=== PATIENT | female | born 1985 | race Asian ===

== ENCOUNTER 2020-07-04 04:57 | Emergency (ER) | payer BC, OTHER ==
[2020-07-04 05:13] VITALS: BMI 25.0
[2020-07-04] MEDS ORDERED: FAMOTIDINE 20 MG/50 ML IVPB 20 MG/50 ML MG IVPB ONE ×2 (05:47→06:09)
[2020-07-04] MEDS ORDERED: ONDANSETRON 4 MG/2 ML VIAL IVPUSH ONE (05:48)
[2020-07-04] MEDS ORDERED: MAG HYDROX/AL HYDROX/SIMETH 30 ML UNIT-DOSE CUP PO ONE (05:48)
[2020-07-04] MEDS ORDERED: SODIUM CHLORIDE 0.9% 1000 ML INFUS.BAG IV ONE (05:49)
[2020-07-04] MEDS ORDERED: ONDANSETRON 4 MG/2 ML VIAL ONE (06:09)
[2020-07-04] MEDS ORDERED: MAG HYDROX/AL HYDROX/SIMETH 30 ML UNIT-DOSE CUP ONE (06:09)
[2020-07-04 06:26] LABS: BASO % 0.2 % (0-2.0); HEMATOCRIT 32.3 % (32.4-45.2); HEMOGLOBIN 11.2 GM/dL (10.7-15.3); MCH 28.9 pg (25.7-33.7); MCHC 34.5 g/dl (32.0-36.0); MEAN CELL VOLUME 83.8 fl (80-96); MEAN PLT VOLUME 9.1 fl (7.5-11.1); MONO % 3.6 % (3.8-10.2); NEUT % 78.2 % (42.8-82.8); PLATELET COUNT 177 K/MM3 (134-434); RBC 3.86 M/mm3 (3.60-5.2); RDW 16.1 % (11.6-15.6); WHITE BLOOD COUNT 4.3 K/mm3 (4.0-10.0)
[2020-07-04 07:10] LABS: POTASSIUM 3.5 mmol/L (3.5-5.1)
[2020-07-04 07:12] LABS: ALBUMIN 2.6 g/dl (3.4-5.0); CALCIUM 8.2 mg/dL (8.5-10.1)
[2020-07-04 07:13] LABS: BLOOD UREA NITROGEN 5.4 mg/dL (7-18)
[2020-07-04 07:16] LABS: CREATININE 0.5 mg/dL (0.55-1.3)
[2020-07-04 07:17] LABS: BILIRUBIN,TOTAL 0.4 mg/dL (0.2-1); TOT PROT 6.1 g/dl (6.4-8.2)
[2020-07-04 08:05] LABS: EPI CELLS >36 /uL (0-25.1); HYALINE CASTS 7 /uL (0-3.1); PH,URINE 6.5 (5.0-8.0); URINE APPEARANCE CLEAR; URINE BACTERIA 372 /uL (0-1359); URINE BILIRUBIN NEGATIVE (NEGATIVE); URINE COLOR DK YELLOW; URINE GLUCOSE (UA) NEGATIVE (NEGATIVE); URINE KETONE 4+ (NEGATIVE); URINE LEUK ESTERASE NEGATIVE (NEGATIVE); URINE NITRITE NEGATIVE (NEGATIVE); URINE PROTEIN TRACE (NEGATIVE); URINE RBC 4 /uL (0-23.9); URINE WBC 21 /uL (0-25.8)
[2020-07-04] MEDS ORDERED: DEXTROSE 5%-LACTATED RINGERS 1,000 ML IV ONE (08:12)
[2020-07-04 11:09] VITALS: BP 95/58; PULSE 98; TEMP 98.5
== END 2020-07-04 11:20 | disposition home or self-care (01) ==
LOC: JER 04:57
PROC: 3E033GC Introduction of Other Therapeutic Substance into Peripheral Vein, Percutaneous Approach (ICD-10-PCS; principal; 2020-07-04)
PROC: 3E033GC Introduction of Other Therapeutic Substance into Peripheral Vein, Percutaneous Approach (ICD-10-PCS; 2020-07-04)
PROC: 3E033GC Introduction of Other Therapeutic Substance into Peripheral Vein, Percutaneous Approach (ICD-10-PCS; 2020-07-04)
DX: R11.2 Nausea with vomiting, unspecified (principal); U07.1 COVID-19
CPT/HCPCS: 36415; 71045-TC-FY; 80053; 81003; 85025; 87086; 93005; 93010; 99284-25

== ENCOUNTER 2020-07-05 13:39 | Emergency (ER) | payer OTHER ==
[2020-07-05 14:04] VITALS: TEMP 98.4; BMI 24.9
[2020-07-05 15:24] LABS: BASO % 0.3 % (0-2.0); HEMATOCRIT 33.3 % (32.4-45.2); HEMOGLOBIN 11.1 GM/dL (10.7-15.3); LYMPH % 13.9 % (8-40); MCH 28.5 pg (25.7-33.7); MCHC 33.2 g/dl (32.0-36.0); MEAN CELL VOLUME 85.8 fl (80-96); MEAN PLT VOLUME 9.2 fl (7.5-11.1); MONO % 3.6 % (3.8-10.2); NEUT % 82.2 % (42.8-82.8); PLATELET COUNT 175 K/MM3 (134-434); RBC 3.88 M/mm3 (3.60-5.2); RDW 16.6 % (11.6-15.6); WHITE BLOOD COUNT 4.8 K/mm3 (4.0-10.0)
[2020-07-05 15:40] LABS: CHLORIDE 106 mmol/L (98-107); POTASSIUM 3.9 mmol/L (3.5-5.1); SODIUM 137 mmol/L (136-145)
[2020-07-05 15:42] LABS: ALBUMIN 2.4 g/dl (3.4-5.0); ANION GAP 9 MMOL/L (8-16); BLOOD UREA NITROGEN 3.4 mg/dL (7-18); CALCIUM 8.1 mg/dL (8.5-10.1); CO2 23 mmol/L (21-32); GLUCOSE,RANDOM 98 mg/dL (74-106)
[2020-07-05 15:46] LABS: CREATININE 0.5 mg/dL (0.55-1.3); SGOT/AST 86 U/L (15-37); SGPT/ALT 82 U/L (13-61)
[2020-07-05 15:48] LABS: BILIRUBIN,TOTAL 0.4 mg/dL (0.2-1); TOT PROT 6.1 g/dl (6.4-8.2)
[2020-07-05 15:49] LABS: ALK PHOS 68 U/L (45-117)
[2020-07-05] MEDS ORDERED: predniSONE 20 MG TABLET (UD) PO ONE (18:44)
[2020-07-05] MEDS ORDERED: predniSONE 20 MG TABLET (UD) ONE (19:11)
[2020-07-05 19:32] LABS: PH,URINE 6.5 (5.0-8.0); URINE APPEARANCE CLEAR; URINE BILIRUBIN NEGATIVE (NEGATIVE); URINE COLOR YELLOW; URINE GLUCOSE (UA) NEGATIVE (NEGATIVE); URINE KETONE 4+ (NEGATIVE); URINE LEUK ESTERASE NEGATIVE (NEGATIVE); URINE NITRITE NEGATIVE (NEGATIVE); URINE PROTEIN NEGATIVE (NEGATIVE)
[2020-07-05 19:43] VITALS: BP 118/65; PULSE 100
== END 2020-07-05 19:42 | disposition home or self-care (01) ==
LOC: JER 13:39
DX: U07.1 COVID-19 (principal); Z3A.17 17 weeks gestation of pregnancy
CPT/HCPCS: 36415; 80053; 81003; 82550; 82728; 84484; 85025; 85379; 85384; 86140; 87804; 99284-25; C9803; U0003

== ENCOUNTER 2020-12-03 11:12 | Inpatient (IN) | payer OTHER ==
[2020-12-03] MEDS: ELECTROLYTE-148 SOLN 1,000 ML IV SCH ×3 (12:00→23:15)
[2020-12-03 12:25] LABS: BASO % 0.2 % (0-2.0); EOS % 0.7 % (0-4.5); HEMATOCRIT 37.2 % (32.4-45.2); HEMOGLOBIN 12.6 GM/dL (10.7-15.3); LYMPH % 20.7 % (8-40); MCH 29.7 pg (25.7-33.7); MCHC 33.8 g/dl (32.0-36.0); MEAN PLT VOLUME 9.1 fl (7.5-11.1); MONO % 6.3 % (3.8-10.2); NEUT % 72.1 % (42.8-82.8); PLATELET COUNT 226 10^3/uL (134-434); RBC 4.23 M/mm3 (3.60-5.2); RDW 14.9 % (11.6-15.6); WHITE BLOOD COUNT 8.8 K/mm3 (4.0-10.0)
[2020-12-03 12:32] LABS: INR 0.86 (0.83-1.09); PROTHROMBIN TIME (PATIENT) 10.4 SEC (9.7-13.0)
[2020-12-03 12:34] LABS: ACTIVATED PTT 24.4 SECONDS (25.2-36.5)
[2020-12-03 12:45] VITALS: BMI 29.2
[2020-12-03 12:46] LABS: BLOOD UREA NITROGEN 10.2 mg/dL (7-18); CALCIUM 8.8 mg/dL (8.5-10.1)
[2020-12-03 12:49] LABS: CREATININE 0.4 mg/dL (0.55-1.3)
[2020-12-03] MEDS ORDERED: DINOPROSTONE 10 MG VAGINAL SUPPOSITORY VG ONE (14:24)
[2020-12-03] MEDS ORDERED: PROMETHAZINE HCL 25 MG/1 ML VIAL IVPUSH ONE (14:34)
[2020-12-03] MEDS ORDERED: BUTORPHANOL TARTRATE 1 MG/ML VIAL IVPB PRN (14:34)
[2020-12-04] MEDS ORDERED: OXYTOCIN 30 UNITS in 0.9% NS 30 UNIT/500 ML INFUS.BAG IVPB SCH (01:30)
[2020-12-04] MEDS ORDERED: OXYTOCIN 30 UNITS in 0.9% NS 30 UNIT/500 ML INFUS.BAG IVPB ONE (03:01)
[2020-12-04] MEDS ORDERED: PCA PUMP NR ONE (07:47)
[2020-12-04] MEDS ORDERED: FENTANYL/BUPIVACAINE/NS/PF - PCEA - 50 ML DISP.SYRIN EP ONE (07:47)
[2020-12-04] MEDS: ELECTROLYTE-148 SOLN 1,000 ML IV SCH ×2 (08:25→15:47)
[2020-12-04] MEDS ORDERED: NALOXONE HCL 0.4 MG/ML VIAL IVPUSH PRN (08:25)
[2020-12-04] MEDS ORDERED: FENTANYL/BUPIVACAINE/NS/PF - PCEA - 50 ML DISP.SYRIN EP SCH (08:30)
[2020-12-04] MEDS ORDERED: OXYTOCIN 20 UNITS in 0.9% NS 20 UNIT/1,000 ML INFUS.BAG IV ONE ×2 (09:18→11:38)
[2020-12-04] MEDS ORDERED: BENZOCAINE 20% 57 GM BOTTLE TP PRN (10:00)
[2020-12-04] MEDS ORDERED: BENZOCAINE 28 GM HEMORRHOIDAL OINTMENT RC PRN (10:00)
[2020-12-04] MEDS ORDERED: METHYLERGONOVINE MALEATE 0.2 MG/1 ML AMP IM PRN (10:00)
[2020-12-04] MEDS ORDERED: WITCH HAZEL 50% (TUCKS) 40 PAD/JAR PAD TP PRN (10:00)
[2020-12-04] MEDS ORDERED: BISACODYL 10 MG SUPP.RECT PR PRN (10:00)
[2020-12-04] MEDS: OXYTOCIN 20 UNITS in 0.9% NS 20 UNIT/1,000 ML INFUS.BAG IV SCH ×2 (10:36→11:47)
[2020-12-04] MEDS ORDERED: ACETAMINOPHEN 325 MG TABLET (FP) ONE (11:38)
[2020-12-04] MEDS ORDERED: IBUPROFEN 600 MG TABLET (FP) PO ONE (11:38)
[2020-12-04 11:46] LABS: CORD BASE EXCESS -7.2 mmol/L (0-2); CORD HCO3 22.4 mmHg (20-29); CORD PCO2 63.2 mmHg (30-78); CORD pH 7.167 (7.14-7.44)
[2020-12-04] MEDS: ACETAMINOPHEN 325 MG TABLET (FP) PO PRN ×2 (11:47→18:40)
[2020-12-04] MEDS: IBUPROFEN 600 MG TABLET (FP) PO PRN ×2 (11:48→18:40)
[2020-12-04 11:49] LABS: CORD BASE EXCESS -6.2 mmol/L (0-2); CORD HCO3 21.4 mmHg (20-29); CORD PCO2 50.4 mmHg (30-78); CORD pH 7.245 (7.14-7.44)
[2020-12-04] MEDS ORDERED: SENNOSIDES/DOCUSATE COMBO (SENNA PLUS) TABLET (UD) PO SCH (22:00)
[2020-12-05] MEDS: ACETAMINOPHEN 325 MG TABLET (FP) PO PRN ×3 (06:20→22:49)
[2020-12-05] MEDS: IBUPROFEN 600 MG TABLET (FP) PO PRN ×3 (06:21→22:50)
[2020-12-05 08:52] LABS: BASO % 0.2 % (0-2.0); EOS % 0.9 % (0-4.5); HEMATOCRIT 31.5 % (32.4-45.2); LYMPH % 15.2 % (8-40); MCH 30.6 pg (25.7-33.7); MCHC 34.8 g/dl (32.0-36.0); MEAN PLT VOLUME 8.9 fl (7.5-11.1); NEUT % 79.7 % (42.8-82.8); PLATELET COUNT 168 10^3/uL (134-434); RBC 3.58 M/mm3 (3.60-5.2); RDW 14.5 % (11.6-15.6); WHITE BLOOD COUNT 10.8 K/mm3 (4.0-10.0)
[2020-12-06] MEDS: IBUPROFEN 600 MG TABLET (FP) PO PRN (07:42)
[2020-12-06] MEDS: ACETAMINOPHEN 325 MG TABLET (FP) PO PRN (07:54)
[2020-12-06 10:31] VITALS: BP 107/70; PULSE 88; TEMP 98.6
== END 2020-12-06 12:30 | disposition home or self-care (01) | DRG 560 ==
LOC: JLDR 11:12 → J3W 12-04 13:15
PROVIDERS: ADMIT Obstetrics & Gynecology; ATTEND Obstetrics & Gynecology
PROC: 3E0P7VZ Introduction of Hormone into Female Reproductive, Via Natural or Artificial Opening (ICD-10-PCS; 2020-12-03)
PROC: 3E033VJ Introduction of Other Hormone into Peripheral Vein, Percutaneous Approach (ICD-10-PCS; 2020-12-03)
PROC: 10E0XZZ Delivery of Products of Conception, External Approach (ICD-10-PCS; principal; 2020-12-04)
DX: O48.0 Post-term pregnancy (principal); O41.03X0 Oligohydramnios, third trimester, not applicable or unspecified; O70.20 Third degree perineal laceration during delivery, unspecified; Z3A.41 41 weeks gestation of pregnancy; Z37.0 Single live birth
CPT/HCPCS: 36415; 36600; 59409; 80048; 82803; 85025; 85610; 85730; 86780; 86850; 86900; 86901; C9803; U0003; U0005

== ENCOUNTER 2024-01-05 15:17 | Emergency (ER) | payer OTHER ==
[2024-01-05 15:24] VITALS: BP 103/71; PULSE 73; RESP 18; TEMP 97.7; BMI 27.3
[2024-01-05] MEDS ORDERED: METOCLOPRAMIDE HCL INJECTION 10 MG/2 ML VIAL ONE (16:04)
[2024-01-05] MEDS ORDERED: ACETAMINOPHEN INJECTION 100 ML IVPB ONE (16:04)
[2024-01-05] MEDS: SODIUM CHLORIDE 0.9% 500 ML INFUS.BAG IV ONE (16:22)
[2024-01-05] MEDS: ACETAMINOPHEN 1000 MG/100 ML BAG IVPB ONE (16:23)
[2024-01-05 16:31] LABS: BASO % 0.5 % (0-2.0); EOS % 1.6 % (0-4.5); HEMATOCRIT 34.8 % (32.4-45.2); HEMOGLOBIN 11.7 GM/dL (10.7-15.3); LYMPH % 32.9 % (8-40); MCH 26.8 pg (25.7-33.7); MCHC 33.7 g/dl (32.0-36.0); MEAN CELL VOLUME 79.5 fl (80-96); MEAN PLT VOLUME 8.9 fl (7.5-11.1); MONO % 6.1 % (3.8-10.2); NEUT % 58.9 % (42.8-82.8); PLATELET COUNT 283 10^3/uL (134-434); RBC 4.38 M/mm3 (3.60-5.2); RDW 14.1 % (11.6-15.6); WHITE BLOOD COUNT 7.3 K/mm3 (4.0-10.0)
[2024-01-05] MEDS: METOCLOPRAMIDE HCL INJECTION 10 MG/2 ML VIAL IVPB ONE (16:49)
[2024-01-05 17:04] LABS: POTASSIUM 4.1 mmol/L (3.5-5.1)
[2024-01-05 17:06] LABS: ALBUMIN 3.6 g/dl (3.4-5.0); BLOOD UREA NITROGEN 11.6 mg/dL (7-18); CALCIUM 9.4 mg/dL (8.5-10.1)
[2024-01-05 17:09] LABS: CREATININE 0.8 mg/dL (0.55-1.3)
[2024-01-05 17:11] LABS: BILIRUBIN,TOTAL 0.3 mg/dL (0.2-1); TOT PROT 7.3 g/dl (6.4-8.2)
== END 2024-01-05 17:56 | disposition home or self-care (01) ==
LOC: JER 15:17
PROC: 3E033NZ Introduction of Analgesics, Hypnotics, Sedatives into Peripheral Vein, Percutaneous Approach (ICD-10-PCS; principal; 2024-01-05)
PROC: 3E033GC Introduction of Other Therapeutic Substance into Peripheral Vein, Percutaneous Approach (ICD-10-PCS; 2024-01-05)
DX: R42 Dizziness and giddiness (principal); R51.9 Headache, unspecified
CPT/HCPCS: 36415; 80053; 84703; 85025; 93005; 93010; 99284-25; J0131